=== PATIENT | male | born 1990 | race Caucasian/White ===

== ENCOUNTER 2017-09-14 14:42 | Emergency (ER) | payer SELFPAY ==
--- NOTE | 2017-09-14 16:12 | RAD ---
INDICATION: Left knee pain COMPARISON: None TECHNIQUE: AP, lateral, tunnel, and sunrise views were obtained. FINDINGS: There are no acute osseous findings. The knee articular is normally. There is a moderate-sized suprapatellar joint effusion. IMPRESSION: JOINT EFFUSION, OTHERWISE NEGATIVE.
[2017-09-14] MEDS ORDERED: HYDROcodone/ACETAMIN 5-325 MG* 1 TAB PO ONE (17:54)
[2017-09-14 18:14] VITALS: BP 153/89
--- NOTE | 2017-09-14 21:37 | ED ---
Ace Ferrer Natalie, scribed for Darci Benoit MD on 09/14/17 at 1750 . Lower Extremity - HPI Summary HPI Summary: The pt is a 27 y/o M presenting to the ED c/o left kneecap dislocation after dropping sheet rock on it. He noticed a popping noise when shifting the kneecap back into place. The pain radiates down his leg, and his knee is swollen. The pain is rated 6/10 in severity. Pt is unable to apply pressure on that leg. - History of Current Complaint Chief Complaint: EDExtremityLower Stated Complaint: LT KNEE INJURY Time Seen by Provider: 09/14/17 17:19 Hx Obtained From: Patient Mechanism Of Injury: Other - sheet rock fell on knee Onset of Pain: Immediate, Post Accident Onset/Duration: Minutes Pain Intensity: 6 Pain Scale Used: 0-10 Numeric Timing: Constant Location: Is Discrete @ - left knee cap Character Of Pain: Aching Associated Signs And Symptoms: Positive: Swelling, Knee Pain Aggravating Factor(s): Ambulation Alleviating Factor(s): Rest Able to Bear Weight: No - Allergies/Home Medications Allergies/Adverse Reactions: Allergies Allergy/AdvReac Type Severity Reaction Status Date / Time No Known Allergies Allergy Verified 09/14/17 17:24 PMH/Surg Hx/FS Hx/Imm Hx Opthamlomology History: Denies: Hx Legally Blind EENT History: Denies: Hx Deafness Infectious Disease History: No Infectious Disease History: Denies: Traveled Outside the [place] in Last 30 Days - Family History Known Family History: Negative: Diabetes - Social History Alcohol Use: Occasionally Substance Use Type: Reports: None Substance Use Comment - Amount & Last Used: daily; 12/15/14 Smoking Status (MU): Light Every Day Tobacco Smoker Type: Cigarettes Amount Used/How Often: 1/4 PPD Length of Time of Smoking/Using Tobacco: 3 Years Have You Smoked in the Last Year: Yes Review of Systems Negative: Fever Positive: Decreased ROM, Other - dislocated left kneecap with swelling All Other Systems Reviewed And Are Negative: Yes Physical Exam - Summary Physical Exam Summary: Appearance: The patient is well-nourished in no acute distress and in no acute pain. Skin: The skin is warm and dry and skin color reflects adequate perfusion. HEENT: The head is normocephalic and atraumatic. The pupils are equal and reactive. The conjunctivae are clear and without drainage. Nares are patent and without drainage. Mouth reveals moist mucous membranes and the throat is without erythema and exudate. The external ears are intact. The ear canals are patent and without drainage. The tympanic membranes are intact. Neck: the neck is supple with full range of motion and non-tender. There are no carotid bruits. There is no neck vein distension. Respiratory: Chest is non-tender. Lungs are clear to auscultation and breath sounds are symmetrical and equal. Cardiovascular: Heart is regular rate and rhythm. There is no murmur or rub auscultated. There is no peripheral edema and pulses are symmetrical and equal. Abdomen: The abdomen is soft and non-tender. There are normal bowel sounds heard in all four quadrants and there is no organomegaly palpated. Musculoskeletal: There is no back tenderness noted. Extremities are non-tender with full range of motion, except there is tenderness to valgus pressure on left kneecap, kneecap blots a little. There is good capillary refill. There is no peripheral edema or calf tenderness elicited. Neurological: Patient is alert and oriented to person, place and time. The patient has symmetrical motor strength in all four extremities. Cranial nerves are grossly intact. Deep tendon reflexes are symmetrical and equal in all four extremities. Psychiatric: The patient has an appropriate affect and does not exhibit any anxiety or depression. Triage Information Reviewed: Yes Vital Signs On Initial Exam: Initial Vitals Temp Pulse Resp BP Pulse Ox 99.1 F 60 16 124/80 97 09/14/17 14:44 09/14/17 14:44 09/14/17 14:44 09/14/17 14:44 09/14/17 14:44 Vital Signs Reviewed: Yes Diagnostics - Vital Signs Vital Signs Temp Pulse Resp BP Pulse Ox 09/14/17 14:44 99.1 F 60 16 124/80 97 - Laboratory Lab Statement: Any lab studies that have been ordered have been reviewed, and results considered in the medical decision making process. - Radiology Left Knee XR Xray Interpretation: Positive (See Comments) - Joint effusion, otherwise negative. ED physician has reviewed this report. Radiology Interpretation Completed By: Radiologist Lower Extremity Course/Dx - Course Course Of Treatment: It sounds as though Mr. Yu sustained a lateral patellar dislocation and spontaneous reduction. He has a joint effusion on xray and was placed in an immobilizer, given crutches and referred to Ortho for F/U. - Diagnoses Provider Diagnoses: Patellar dislocation Discharge - Sign-Out/Discharge Documenting (check all that apply): Discharge/Admit/Transfer - Discharge Plan Condition: Stable Disposition: HOME Prescriptions: HYDROcodone/ACETAMIN 5-325 MG* [[place] 5-325 TAB*] 1 tab PO Q6H PRN #20 tab MDD 4 PRN Reason: Pain Patient Education Materials: Patellar Dislocation (ED) Referrals: Junior Vega MD [Medical Doctor] - 09/17/17 SAMANTHA Durand [Primary Care Provider] - Additional Instructions: Please take Hydrocodone as prescribed. Use crutches for walking, bear little weight on your left leg. Elevate your leg and apply ice as needed. Follow up with Dr. Vega next week. Return to the emergency department for any new or worsening symptoms. - Billing Disposition and Condition Condition: STABLE Disposition: HOME The documentation as recorded by the Ace sifuentes Natalie accurately reflects the service I personally performed and the decisions made by me, Darci Benoit MD.
== END 2017-09-14 18:13 | disposition home or self-care (01) ==
LOC: ED 14:42
DX: S83.005A Unspecified dislocation of left patella, initial encounter (principal); M25.562 Pain in left knee; F17.210 Nicotine dependence, cigarettes, uncomplicated; W22.8XXA Striking against or struck by other objects, initial encounter; Y92.9 Unspecified place or not applicable
CPT/HCPCS: 99282

== ENCOUNTER 2017-10-12 05:51 | Day surgery (SDC) | payer OTHER ==
[~2017-10-12 05:51] MED LIST: Buffered Lidocaine 0.9% SYRIN* 5 ML/SYR SYRINGE INTRADERM ONE
[2017-10-12] MEDS ORDERED: Famotidine IV* 10 MG/ML 2 ML (20 mg) IV ONE (06:00)
[2017-10-12] MEDS ORDERED: Famotidine IV* 10 MG/ML 2 ML (20 mg) ONE (06:20)
[2017-10-12] MEDS ORDERED: ceFAZolin 2 GM PREMIX (*) 2 GM/50 ML BAG IVPB ONE (06:21)
[2017-10-12] MEDS ORDERED: EPINEPHRINE 1 MG/ML 1 ML VIAL ONE (07:13)
[2017-10-12] MEDS ORDERED: Bupivacaine 0.5% SDV PF* 30ML VIAL ONE (07:13)
[2017-10-12] MEDS ORDERED: Midazolam* 1 MG/ML 5 ML VIAL (5 MG) ONE (07:28)
[2017-10-12] MEDS ORDERED: fentaNYL* 50 MCG/ML 2 ML VIAL (100 MCG VIAL) ONE ×4 (07:28→09:10)
[2017-10-12] MEDS ORDERED: Ketorolac INJ* 30 MG/ML 1 ML VIAL ONE (08:14)
[2017-10-12] MEDS ORDERED: Propofol* 10 MG/ML 20 ML BTL IV PUSH ONE (08:14)
[2017-10-12] MEDS ORDERED: Dexamethasone IV* 4 MG/ML 1 ML (4 MG) ONE (08:14)
[2017-10-12] MEDS ORDERED: Lidocaine 2% PF * 5 ML VIAL ONE (08:14)
[2017-10-12] MEDS ORDERED: DiMENhydriNATE IV* 50 MG/ML VIAL ONE (08:14)
[2017-10-12] MEDS ORDERED: Naloxone* 0.4 MG/ML 1 ML VIAL IV PRN (08:16)
[2017-10-12] MEDS ORDERED: Ondansetron SYRINGE* 4 MG/2 ML SYRINGE (from 40mg/20ml vial) IV PRN (08:16)
[2017-10-12] MEDS ORDERED: Midazolam* 1 MG/ML 2 ML VIAL (2 MG) ONE (09:12)
[2017-10-12] MEDS ORDERED: HYDROmorphone INJ* 2 MG/ML CARPUJECT SYRINGE ONE (09:35)
[2017-10-12] MEDS: HYDROmorphone INJ* 1 MG/ML CARPUJECT SYRINGE IV PRN ×5 (09:38→11:21)
[2017-10-12] MEDS ORDERED: oxyCODONE/Acetamin 5/325 MG* TAB ONE ×2 (09:40→11:30)
[2017-10-12] MEDS: oxyCODONE/Acetamin 5/325 MG* TAB PO PRN ×2 (09:42→11:54)
[2017-10-12 12:17] VITALS: BP 139/82
--- NOTE | 2017-10-15 04:56 | OP ---
DATE OF OPERATION: 10/12/17 - [facility] DATE OF : 89. SURGEON: Junior Vega MD. GLASS GLAZIER: NIELS Lawton. A physician producer assistant was required for the length of the procedure for positioning, help with instrumentation, knee manipulation, and closure. ANESTHESIOLOGIST: Rose Wilson MD. ANESTHESIA: General. PRE-OP DIAGNOSES: 1. First time left knee patella lateral instability event. 2. Loose osteochondral body, left knee joint. 3. Likely osteochondral defect, medial patella, left. POST-OP DIAGNOSES: 1. First time left knee patellar lateral instability event. 2. Loose osteochondral body, left knee joint. 3. Likely osteochondral defect, medial patella, left. 4. Impacted fracture, chondral or osteochondral, medial patella, left. OPERATIVE PROCEDURE: 1. Left knee arthroscopic removal of loose body. 2. Left knee arthroscopic synovectomy including removal of medial plica. 3. Left knee arthroscopic debridement of small area defect, medial plateau. 4. Left knee arthroscopic probing, medial patella impacted chondral or osteochondral lesion. 5. Left knee arthroscopic evaluation of patellofemoral tracking. ANTIBIOTICS: Ancef 2 g IV. IV FLUIDS: 1100 cc crystalloid. LYHP-TV-QVTT TIME: 66 minutes. TOURNIQUET TIME: 66 minutes at 300 mmHg. ARTHROSCOPY FLUID USED: Three bags each with 3 L of saline for a total of 9 L. COMPLICATIONS: None. SPECIMEN: Osteochondral lesion, loose body. IMPLANTS: None. ESTIMATED BLOOD LOSS: Minimal. 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 The patient presented to me in clinic with significant pain and swelling of that right knee. I aspirated 134 cc of serosanguineous fluid from knee joint. By x-ray it was clear that the patient likely had loose bodies in that knee and the patient had significant pain, swelling, and effusion in that knee. These all necessitated an MRI evaluation. I placed the patient in a J-brace and made him weightbearing as tolerated with crutches and kept him out of work. MRI was evaluated by me at the patient's second clinic visit. It showed a clear loose body likely with some articular cartilage and subchondral bone. There was some inflammation about the medial patella. While not identified on MRI, I felt there was a possibility of an impacted area of bone and/or cartilage. No clear full thickness tear of the MPFL ligament although this is rarely seen. A TT-TG distance was clearly below 15 mm. Discussed with the patient and his significant other a whole range of treatments for first time and recurrent patella instability. I consented the patient for a variety of operative procedures and had approved a variety of operative procedures. Upon analyzing the MRI and thinking about the case, I decided that removal of loose body arthroscopically with assessment of it and the undersurface of the patella would dictate whether or not fixation of an osteochondral fragment would be possible. I had pins and screws available from [employer] to provide osteochondral fixation as feasible and appropriate. As well depending on the quality and besides the nature of articular defect or osteochondral defect encountered, I had a variety of cartilage scientologist modalities available for me in the operating room. I decided that MPFL reconstruction would not make sense as if any thing that would just put more stress on the medial patella, tightening it slightly, which might prevent healing and increase pain about the injury site. I will hold off on that until and unless the patient has a recurrent instability event. Patient will not need a tibial tubercle transfer as his TT-TG distance is normal. Discussed the planned surgical procedure with the patient. Discussed risks and potential complications. DESCRIPTION OF PROCEDURE: Preoperatively, the patient signed a written consent. Operative extremity was marked in the preoperative holding. The patient was taken back to the operating room and placed supine on the operating room table. The patient was sedated and intubated. A blanket bump was placed under the left hemipelvis. A lateral post was attached to the bed. A tourniquet was placed around the left proximal thigh. Left lower extremity was prepped and draped. Surgical time-out was performed. The tourniquet was elevated to 300 mmHg. Surgical time-out performed. Knee anterolateral arthroscopy portal was established using standard technique. A diagnostic arthroscopy was commenced. The patient had a significant amount of blood still in the knee. It took a significant volume of saline and aspiration to clear the blood from the knee and to allow good visualization. First, I could not see well in the patellofemoral compartment. I dropped down to the popliteal hiatus where no loose body was visualized. Next, I returned to the patello-femoral compartment. There was a very prominent medial plica, which I debrided with an arthroscopic shaver. I entered that arthroscopic shaver through a superolateral portal. I continued down to look into the anterior aspect of the knee. The loose body was visible about the anterior aspect of the medial compartment. I continued my diagnostic arthroscopy. I evaluated the medial and lateral compartments. No meniscal injury. No articular cartilage defects. Intercondylar notch showed excellently intact ACL and PCL. I next returned to the loose body. By now it had positioned itself in the medial gutter. I made a small portal directly over the loose body using direct visualization technique, spinal needle. I used a grasper to remove delicately the osteochondral fragment. I next evaluated the loose body. It had articular cartilage on one side. It was triangular. In its longest dimensions it was 10 to 11 mm long. There was wispy, barely any subchondral bone attached to the articular cartilage on its deep side. I saw that the fragment would be likely too small for a screw, but might be amenable to pin fixation with a good clear bed for it. We were leaking some fluid through that incision made over the loose body. Therefore, I placed several stitches across that skin incision site with nylon 4 -0 suture. They stopped the fluid egress. I next evaluated the tracking of the patellofemoral compartment. In full extension, the patella was frankly lateral to the trochlear groove. However, the patella engaged with the trochlear groove in 10 or 20 degrees of knee flexion and stayed well centralized in the trochlear groove throughout the rest of the range of motion. I was happy with this. It should be noted that I established a second superolateral portal to best evaluate the tracking of the patellofemoral compartment. I next evaluated the medial aspect of the patella looking from a variety of different portals including anterolateral, superolateral, and inferomedial. I debrided some inflamed synovitic tissue about the medial aspect of the patella with an arthroscopic shaver. It appeared that the defect site was along the medial aspect of the patella. It was not clear if it involved any of the undersurface of the patella. In the location of the defect, there was no articulation whatsoever of that part of the patella on the trochlear groove. I thought that that fragment might be from the straight medial aspect of the patella rather than the undersurface. Therefore, there seemed no reason to fix the osteochondral loose fracture fragment. I spent quite some time evaluating that defect. Looking more closely at the articular cartilage, adjacent to the area of cartilage loss, it appeared that there was a small area of possible looseness of articular cartilage. Unclear if this involved bone and cartilage or just cartilage. This zone was of the medial most patella. The area of softening or potential loosening was longer superior to inferior than it was medial to lateral. It looked to be over 10 mm from superior to inferior, but was not more than 4 to 5 mm from medial to lateral. I considered an open arthrotomy to evaluate this and possibly fix it. However, it seemed relatively stable. I thought I would give the patient a chance to heal this on his own and avoid a large knee arthrotomy with hardware placed in the patella for this softening that could be just cartilage or cartilage and bone. Therefore, I stopped at this point. Removed the instruments and fluid from the knee. Closed skin incision with [id number] in 12 stitches using nylon 4-0 suture. Xeroform, 4x4s, ABDs, Nikunj bandage from foot to proximal thigh. Dropped tourniquet. DISPOSITION: The patient was discharged home on aspirin enteric coated b.i.d. for 2 weeks and Percocet as needed. The patient was given wound care instructions. He is to start physical therapy immediately for range of motion and strengthening of the left knee to avoid high stress patellofemoral exercises. He can wean out of his crutches. He will see me in 10 to 14 days postoperatively. [id number]/[facility] #: [id number] PATRICK
== END 2017-10-12 12:28 | disposition home or self-care (01) ==
LOC: OR 05:51
PROVIDERS: ATTEND Orthopaedic Surgery
DX: S83.005A Unspecified dislocation of left patella, initial encounter (principal); S82.015A Nondisplaced osteochondral fracture of left patella, initial encounter for closed fracture; M23.42 Loose body in knee, left knee; X50.0XXA Overexertion from strenuous movement or load, initial encounter; Y93.89 Activity, other specified; Y92.89 Other specified places as the place of occurrence of the external cause; Y99.0 Civilian activity done for income or pay; Z72.0 Tobacco use; K21.9 Gastro-esophageal reflux disease without esophagitis
CPT/HCPCS: A9270-GY; J0690; J1100; J1170; J1240; J1885; J2250; J2704; J3010